=== PATIENT | female | born 1950 | race Caucasian/White ===

== ENCOUNTER 2018-09-16 10:34 | Emergency (ER) | payer MEDICAID | END 2018-09-16 11:47 | disposition home or self-care (01) | LOC: FTE 10:34 | DX: H00.019 Hordeolum externum unspecified eye, unspecified eyelid (principal); I10 Essential (primary) hypertension; E11.9 Type 2 diabetes mellitus without complications | CPT/HCPCS: 99283; Z7502 ==

== ENCOUNTER 2019-01-31 11:52 | Emergency (ER) | payer OTHER, MEDICAID ==
[2019-01-31] MEDS: DIPHTH/TET/ACEL PERTUSS (ADULT) 0.5 ML VIAL IM* (13:55)
[2019-01-31] MEDS: HYDROCODONE/APAP (5/325) TAB PO (15:20)
== END 2019-01-31 16:16 | disposition home or self-care (01) ==
LOC: E/R 11:52
DX: S52.121A Displaced fracture of head of right radius, initial encounter for closed fracture (principal); I10 Essential (primary) hypertension; E11.9 Type 2 diabetes mellitus without complications; E03.9 Hypothyroidism, unspecified; S80.212A Abrasion, left knee, initial encounter; S00.81XA Abrasion of other part of head, initial encounter; W18.39XA Other fall on same level, initial encounter; Y92.9 Unspecified place or not applicable; Z23 Encounter for immunization; Z79.84 Long term (current) use of oral hypoglycemic drugs
CPT/HCPCS: 29125; 73080-RT; 82962; 90471; 90715; 99283-25